=== PATIENT | female | born 1945 | race Caucasian/White ===

== ENCOUNTER → 2016-11-13 | Outpatient (CLI) | payer OTHER ==
[2016-06-22 10:57] VITALS: BP 139/67
--- NOTE | 2016-11-14 06:44 | RAD ---
HISTORY: Cough, fever Study: Chest two views Comparison: September 15, 2015 Findings: The heart is within normal limits in size. The aorta is calcified. The nelson are normal. No congestiv e heart failure is noted. The lungs are well inflated and free of acute alveolar infiltrates. No ple ural effusions are identified. The pulmonary arteries are prominent but unchanged from prior examina tion. IMPRESSION: Lungs hyperinflated but free of acute infiltrates Reported By:
== END ==
LOC: RAD 17:58
PROVIDERS: ATTEND Internal Medicine Critical Care Medicine
DX: J11.1 Influenza due to unidentified influenza virus with other respiratory manifestations (principal)
CPT/HCPCS: 71020

== ENCOUNTER 2017-04-03 15:59 | Observation (INO) | payer OTHER ==
[2017-04-03] MEDS ORDERED: XANAX PO PRN ×2 (16:54→18:10)
--- NOTE | 2017-04-03 17:00 | DR.H&P ---
H&P - History & Physical for Day of: H&P Date: 04/03/17 - Chief Complaint Chief Complaint: ABDOMINAL PAIN, N/V. CANNOT EAT - Allergies Allergies/Adverse Reactions: Allergies Allergy/AdvReac Type Severity Reaction Status Date / Time MS Amoxicillin [Amoxicillin] Allergy Severe RASH Verified 09/15/15 19:45 MS Ciprofloxacin [From Cipro] Allergy Severe RASH Verified 09/15/15 19:48 MS Doxycycline [Doxycycline] Allergy Severe RASH Verified 09/15/15 19:49 MS Pneumococcal Vaccine Allergy Severe RASH, Verified 09/15/15 19:53 [Pneumococcal Vaccine] SWELLING MS Clonidine [Clonidine] Allergy Intermediate DRY COUGH Verified 09/15/15 19:47 MS Fluconazole Allergy Intermediate RASH Verified 09/15/15 19:50 [From Diflucan] MS Codeine [Codeine] Allergy Unknown Verified 09/15/15 19:53 MS Ambrisentan Allergy Verified 09/15/15 19:51 [From Letairis] MS Lisinopril [Lisinopril] Allergy Verified 09/15/15 19:47 MS Red Dye [From Letairis] Allergy SOB, Verified 09/15/15 19:51 SWELLING, RASH SOLUMEDROL Allergy Unknown Uncoded 09/15/15 19:53 - History of Present Illness History of Present Illness: 72 WF DIRECT ADMIT FROM DR WOODY OFFICE WITH CO ABDOMINAL PAIN, N/V/D, FOOD INTOLERANCE, ABDOMINAL BLOATING. PT HAS HX GALLBLADDER EF 2.4% IN 2014, PT POST-PONED DUE TO AFIB AND PULMONARY HYPERTENSION REQUIRING MEDICAL CLEARANCE FOR SURGERY. PT UNDER THE CARE OF DR UNDERWOOD AT [facility]. PT HOLDING COUMADIN AT THIS TIME, REPORTS INR 2.4 THIS AM. PLAN TO OBTAIN GB US AND HIDA SCAN, DISCUSSED POSSIBLE TRANSFER TO [facility] FOR CHOLECYSTECTOMY - Past Medical History Past Medical History: Arthritis, Coronary Artery Disease, Hypertension Additional Medical History: PYLMONARY HTN - Past Surgical History Surgical History: Appendectomy, - Family History Family Medical History: Cancer, Hypertension - Social History Does patient currently use any type of tobacco product: No Have you used tobacco products in the last 12 months: No Type of Tobacco Use: None Does any household member use tobacco: No Alcohol Use: None Drug Use: None - Review of Systems Constitutional: Fever, Chills, Weakness Eyes: No Symptoms Reported ENT: No Symptoms Reported Respiratory: No Symptoms Reported Cardiovascular: No Symptoms Reported Gastrointestinal: Nausea, Vomiting, Abdominal Pain Genitourinary: No Symptoms Reported Musculoskeletal: Back Pain, Leg Pain Skin: No Symptoms Reported Neurological: No Symptoms Reported - Physical Exam Vital Signs: Blood Pressure [Right Arm] 170/110 Blood Pressure [Left Arm] 184/78 Blood Pressure 139/67 Oriented: Normal Eyes: Normal Ear: Normal Nose: Normal Throat: Normal Respiratory: RLL Diminished, LLL Diminished Cardiovascular: Irregular : Normal Auscultation: Bowel Sounds: Normal Palpation: Normal Tenderness: RUQ, Epigastric Skin: Decreased Turgur Musculoskeletal: Back:Thoracic, Back:Lumbar Affect: Anxious Speech Pattern: Clear, Appropriate - Assessment/Plan (1) Biliary dyskinesia Status: Acute Plan: admit, obtain admission labs including amylase and lipase, urinalysis, PT/ INR, a.m. gallbladder ultrasound and HIDA scan, resume home medications, hold Coumadin, EKG on admission and continuous telemetry. Frost diet (2) Hypertension Status: Acute (3) Pulmonary hypertension Status: Acute (4) Atrial fibrillation Status: Active (5) RUQ pain Status: Acute
[2017-04-03] MEDS ORDERED: ZOFRAN INJ 4 MG VIAL IVP PRN (18:10)
[2017-04-03 18:43] LABS: BASOPHILS # (AUTO) 0.1 X10^3/uL (0.0-0.1); BASOPHILS % (AUTO) 0.9 % (0.2-1.0); EOSINOPHILS # (AUTO) 0.1 x10^3/uL (0.0-0.2); EOSINOPHILS % (AUTO) 1.9 % (0.9-2.9); HEMATOCRIT 38.7 % (36.0-47.0); HEMOGLOBIN 13.2 g/dL (12.0-16.0); LYMPHOCYTES # (AUTO) 1.8 X10^3/uL (1.3-2.9); LYMPHOCYTES % (AUTO) 29.2 % (21.0-51.0); MEAN CORPUSCULAR HEMOGLOBIN 31.4 pg (27.0-34.0); MEAN CORPUSCULAR HGB CONC 34.1 g/dL (33.0-35.0); MEAN CORPUSCULAR VOLUME 92.1 fL (80.0-100.0); MEAN PLATELET VOLUME 7.3 fL (7.4-11.0); MONOCYTES # (AUTO) 0.3 x10^3/uL (0.3-0.8); MONOCYTES % (AUTO) 4.4 % (0.0-13.0); NEUTROPHILS % (AUTO) 63.6 % (42.0-75.0); PLATELET COUNT 193 X10^3/uL (150.0-450.0); WHITE BLOOD COUNT 6.2 X10^3/uL (3.6-10.0)
[2017-04-03 18:50] LABS: ALANINE AMINOTRANSFERASE 26 Units/L (12-78); ALBUMIN 3.6 g/dL (3.4-5.0); ALKALINE PHOSPHATASE 78 Units/L (46-116); ASPARTATE AMINO TRANSFERASE 22 Units/L (15-37); BLOOD UREA NITROGEN 17 mg/dL (7-18); CALCIUM 9.6 mg/dL (8.5-10.1); CARBON DIOXIDE 29.2 mmol/L (21-32); CHLORIDE 104 mmol/L (98-107); COR NA(FOR HYPERGLY) 141 mmol/L (136-145); CREATININE 1.04 mg/dL (0.55-1.02); LIPASE 120 Units/L (73-393); SODIUM 140 mmol/L (136-145); TOTAL PROTEIN 7.5 g/dL (6.4-8.2); eGFR BLACK RACES > 60 (>60); eGFR NON BLACK RACES 55 (>60)
[2017-04-03 22:32] LABS: BILIRUBIN,URINE NEGATIVE (NEGATIVE); BLOOD/HEMOGLOBIN,URINE 3+ (NEGATIVE); GLUCOSE, URINE NEGATIVE (NEGATIVE); KETONES,URINE NEGATIVE (NEGATIVE); LEUKOCYTE ESTERASE ,URINE NEGATIVE (NEGATIVE); NITRITES,URINE NEGATIVE (NEGATIVE); PH,URINE 6.5 (5.0 - 8.0); PROTEIN,URINE NEGATIVE (NEGATIVE); UROBILINOGEN,URINE NORMAL (NORMAL)
[2017-04-03 22:34] LABS: APPEARANCE,URINE CLEAR (CLEAR); COLOR,URINE PALE YELLOW (YELLOW)
[2017-04-03 22:40] LABS: BACTERIA,URINE NEGATIVE /HPF (NEGATIVE); SQUAMOUS EPITHELIAL CELL,UR FEW /HPF (NEGATIVE)
[2017-04-04 04:33] LABS: BASOPHILS % (AUTO) 0.9 % (0.2-1.0); EOSINOPHILS # (AUTO) 0.1 x10^3/uL (0.0-0.2); HEMATOCRIT 35.7 % (36.0-47.0); HEMOGLOBIN 12.1 g/dL (12.0-16.0); LYMPHOCYTES % (AUTO) 36.1 % (21.0-51.0); MEAN CORPUSCULAR HEMOGLOBIN 30.9 pg (27.0-34.0); MEAN CORPUSCULAR VOLUME 90.8 fL (80.0-100.0); MEAN PLATELET VOLUME 7.5 fL (7.4-11.0); MONOCYTES # (AUTO) 0.4 x10^3/uL (0.3-0.8); MONOCYTES % (AUTO) 7.1 % (0.0-13.0); NEUTROPHILS # (AUTO) 2.9 x10^3/uL (2.2-4.8); NEUTROPHILS % (AUTO) 53.9 % (42.0-75.0); PLATELET COUNT 177 X10^3/uL (150.0-450.0); RED BLOOD COUNT 3.93 X10^6/uL (3.5-5.4); RED CELL DISTRIBUTION WIDTH 12.8 % (11.6-16.5); WHITE BLOOD COUNT 5.5 X10^3/uL (3.6-10.0)
--- NOTE | 2017-04-04 08:23 | US ---
History: Right upper quadrant pain Study: Ultrasound of the right upper quadrant of the abdomen Comparison: March 09, 2015 Findings: The gallbladder is normal in size without wall thickening or stone. The common hepatic duct measures 4.5 mm diameter. There is no free fluid. The right kidney measures 9.26 x 4.67 by 4.56 cm without mass or hydronephrosis. The visualized liver is unremarkable without mass. The pancreas is unremarkable. Impression: Negative Reported By:
[2017-04-04] MEDS ORDERED: MIRALAX POWDER (1 DOSE 17GM) PO PRN (09:25)
[2017-04-04] MEDS ORDERED: PHENERGAN TAB 25 MG PO PRN (09:25)
[2017-04-04] MEDS ORDERED: CYCLOBENZAPRINE HCL 5 MG PO PRN (09:25)
[2017-04-04] MEDS ORDERED: HYDROMORPHONE HCL PO PRN (09:25)
[2017-04-04] MEDS ORDERED: [UNRECOGNIZED DRUG - OTHER] HHN SCH (09:30)
[2017-04-04] MEDS ORDERED: FLEXERIL TAB 10 MG PO PRN (10:13)
[2017-04-04] MEDS: ULTRAM PO PRN ×2 (10:38→19:10)
[2017-04-04] MEDS ORDERED: CELEBREX PO SCH (11:00)
[2017-04-04] MEDS: COREG TAB 25 MG PO SCH ×2 (11:05→20:32)
[2017-04-04] MEDS: LASIX PO SCH (11:06)
[2017-04-04] MEDS: COZAAR PO SCH ×2 (11:06→20:32)
[2017-04-04] MEDS: NORVASC TAB 5 MG PO SCH ×2 (11:06→13:32)
[2017-04-04] MEDS: LEVSIN/MAALOX/LIDOC VISC PO PRN (13:32)
--- NOTE | 2017-04-04 13:54 | PCM.PROG ---
Progress Note - Progress Note for Day of Date: 04/04/17 - Subjective Subjective: patient complains of Right upper abdominal pain, right side pain, nausea this a.m. The patient is a 72-year-old white female who was a direct admit one day ago with diagnosis of right upper quadrant pain and biliary dyskinesia. Patient had gallbladder ultrasound this morning and has a HIDA scan scheduled for a.m. Patient's last HIDA scan revealed an ejection fracture of 2.4 which was in the fall of 2014. Patient has a history of atrophia on Coumadin therapy as well as pulmonary hypertension. Pending diagnostic test results we will arrange for transfer to [facility] for cholecystectomy. Continue current medication regimen, bland diet, a.m. labs - Past Medical Family Social History Past Med/Fam/Surg Hx: No changes since H&P Allergies: Allergies ambrisentan [From Letairis] Allergy (Verified 04/03/17 19:41) amoxicillin Allergy (Verified 04/03/17 19:41) ciprofloxacin [From Cipro] Allergy (Verified 04/03/17 19:41) clonidine Allergy (Verified 04/03/17 19:41) codeine Allergy (Verified 04/03/17 19:41) doxycycline Allergy (Verified 04/03/17 19:41) fluconazole [From Diflucan] Allergy (Verified 04/03/17 19:41) lisinopril Allergy (Verified 04/03/17 19:41) pneumococcal vaccine Allergy (Verified 04/03/17 19:41) SOLUMEDROL Allergy (Unknown, Uncoded 09/15/15 19:53) - Review of Systems ROS: No change since H&P - Vital Signs and I&O's Vital Signs: Temperature 98.2 F Pulse Rate [Right Brachial] 60 Respiratory Rate 18 Blood Pressure [Right Arm] 136/64 Blood Pressure [Left Arm] 184/78 Blood Pressure 139/67 O2 Sat by Pulse Oximetry 94 Intake and Output: Intake & Output 04/02/17 04/03/17 04/04/17 04/05/17 11:59 11:59 11:59 11:59 Intake Total 320 Balance 320 - Physical Exam Oriented: Normal Eyes: Normal Ear: Normal Nose: Normal Throat: Normal Cardiovascular: Irregular : Normal Auscultation: Bowel Sounds: Normal Tenderness: RUQ, Epigastric Skin: Decreased Turgur Musculoskeletal: Back:Thoracic, Back:Lumbar Affect: Anxious Speech Pattern: Clear, Appropriate - Laboratory and Diagnostics Result Diagrams: 04/04/17 03:50 04/03/17 18:25 Labs: Laboratory WBC 5.5 X10^3/uL (3.6-10.0) 04/04/17 03:50 RBC 3.93 X10^6/uL (3.5-5.4) 04/04/17 03:50 Hgb 12.1 g/dL (12.0-16.0) 04/04/17 03:50 Hct 35.7 % (36.0-47.0) L 04/04/17 03:50 MCV 90.8 fL (80.0-100.0) 04/04/17 03:50 MCH 30.9 pg (27.0-34.0) 04/04/17 03:50 MCHC 34.0 g/dL (33.0-35.0) 04/04/17 03:50 RDW 12.8 % (11.6-16.5) 04/04/17 03:50 Plt Count 177 X10^3/uL (150.0-450.0) 04/04/17 03:50 MPV 7.5 fL (7.4-11.0) 04/04/17 03:50 Neut % 53.9 % (42.0-75.0) 04/04/17 03:50 Lymph % 36.1 % (21.0-51.0) 04/04/17 03:50 Ogle % 7.1 % (0.0-13.0) 04/04/17 03:50 Eos % 2.0 % (0.9-2.9) 04/04/17 03:50 Baso % 0.9 % (0.2-1.0) 04/04/17 03:50 Neut # 2.9 x10^3/uL (2.2-4.8) 04/04/17 03:50 Lymph # 2.0 X10^3/uL (1.3-2.9) 04/04/17 03:50 Ogle # 0.4 x10^3/uL (0.3-0.8) 04/04/17 03:50 Eos # 0.1 x10^3/uL (0.0-0.2) 04/04/17 03:50 Baso # 0.0 X10^3/uL (0.0-0.1) 04/04/17 03:50 Absolute Nucleated RBC 0.0 /100WBC 04/04/17 03:50 INR Target Range - 04/03/17 18:25 INR 2.01 (0.8-1.3) H 04/03/17 18:25 Sodium 140 mmol/L (136-145) 04/03/17 18:25 Corrected Sodium 141 mmol/L (136-145) 04/03/17 18:25 Potassium 3.6 mmol/L (3.5-5.1) 04/03/17 18:25 Chloride 104 mmol/L (98-107) 04/03/17 18:25 Carbon Dioxide 29.2 mmol/L (21-32) 04/03/17 18:25 BUN 17 mg/dL (7-18) 04/03/17 18:25 Creatinine 1.04 mg/dL (0.55-1.02) H 04/03/17 18:25 Est GFR (MDRD) Af Amer > 60 (>60) 04/03/17 18:25 Est GFR (MDRD) Non-Af 55 (>60) L 04/03/17 18:25 Glucose 134 mg/dL (65-99) H 04/03/17 18:25 Calcium 9.6 mg/dL (8.5-10.1) 04/03/17 18:25 Corrected Calcium TNP 04/03/17 18:25 Total Bilirubin 0.70 mg/dL (0.2-1.0) 04/03/17 18:25 AST 22 Units/L (15-37) 04/03/17 18:25 ALT 26 Units/L (12-78) 04/03/17 18:25 Alkaline Phosphatase 78 Units/L (46-116) 04/03/17 18:25 Total Protein 7.5 g/dL (6.4-8.2) 04/03/17 18:25 Albumin 3.6 g/dL (3.4-5.0) 04/03/17 18:25 Globulin 3.9 g/dL (2.5-4.5) 04/03/17 18:25 Albumin/Globulin Ratio 0.9 Ratio (1.1-2.1) L 04/03/17 18:25 Amylase 43 Units/L (25-115) 04/04/17 03:50 Lipase 120 Units/L (73-393) 04/03/17 18:25 Specimen Type Clean catch urine 04/03/17 18:10 Urine Color Pale yellow (YELLOW) 04/03/17 18:10 Urine Appearance Clear (CLEAR) 04/03/17 18:10 Urine pH 6.5 (5.0 - 8.0) 04/03/17 18:10 Ur Specific Notrees 1.010 (1.000-1.030) 04/03/17 18:10 Urine Protein Negative (NEGATIVE) 04/03/17 18:10 Urine Glucose (UA) Negative (NEGATIVE) 04/03/17 18:10 Urine Ketones Negative (NEGATIVE) 04/03/17 18:10 Urine Occult Blood 3+ (NEGATIVE) 04/03/17 18:10 Urine Nitrite Negative (NEGATIVE) 04/03/17 18:10 Urine Bilirubin Negative (NEGATIVE) 04/03/17 18:10 Urine Urobilinogen Normal (NORMAL) 04/03/17 18:10 Ur Leukocyte Esterase Negative (NEGATIVE) 04/03/17 18:10 Urine RBC 1 - 4 /HPF (NEGATIVE) 04/03/17 18:10 Urine WBC Rare /HPF (NEGATIVE) 04/03/17 18:10 Ur Squamous Epith Cells Few /HPF (NEGATIVE) 04/03/17 18:10 Urine Bacteria Negative /HPF (NEGATIVE) 04/03/17 18:10 Ur Culture Indicated? No/not indicated 04/03/17 18:10 - Plan (1) Biliary dyskinesia Status: Acute Plan: gallbladder ultrasound obtained this morning, HIDA scan every morning. [place] diet, pain and nausea control, continue current medication regimen. Repeat a.m. labs (2) Hypertension Status: Acute (3) Pulmonary hypertension Status: Acute (4) Atrial fibrillation Status: Active (5) RUQ pain Status: Acute
[2017-04-04] MEDS: PriLOSEC PO SCH (14:49)
[2017-04-04] MEDS ORDERED: PATIENT'S HOME MEDICATION (Omeprazole [Prilosec 40 Mg] 40 MG) PO SCH (15:00)
[2017-04-04] MEDS ORDERED: PATIENT'S HOME MEDICATION (Losartan Potassium [Cozaar] 50 MG) PO SCH (21:00)
[2017-04-04] MEDS ORDERED: COUMADIN TAB 7.5 MG PO SCH (21:00)
[2017-04-04] MEDS ORDERED: XANAX PO SCH (21:00)
[2017-04-05 04:58] LABS: ALANINE AMINOTRANSFERASE 25 Units/L (12-78); ALBUMIN 2.9 g/dL (3.4-5.0); ALKALINE PHOSPHATASE 63 Units/L (46-116); ASPARTATE AMINO TRANSFERASE 23 Units/L (15-37); BLOOD UREA NITROGEN 15 mg/dL (7-18); CALCIUM 8.7 mg/dL (8.5-10.1); CARBON DIOXIDE 30.4 mmol/L (21-32); CHLORIDE 106 mmol/L (98-107); COR CA(FOR HYPOALB) 9.6 mg/dL (8.5-10.1); COR NA(FOR HYPERGLY) 142 mmol/L (136-145); CREATININE 0.91 mg/dL (0.55-1.02); SODIUM 142 mmol/L (136-145); TOTAL PROTEIN 6.2 g/dL (6.4-8.2); eGFR BLACK RACES > 60 (>60); eGFR NON BLACK RACES > 60 (>60)
[2017-04-05 05:03] LABS: BASOPHILS % (AUTO) 0.9 % (0.2-1.0); EOSINOPHILS # (AUTO) 0.1 x10^3/uL (0.0-0.2); EOSINOPHILS % (AUTO) 2.5 % (0.9-2.9); HEMATOCRIT 35.3 % (36.0-47.0); HEMOGLOBIN 12.1 g/dL (12.0-16.0); LYMPHOCYTES # (AUTO) 1.8 X10^3/uL (1.3-2.9); LYMPHOCYTES % (AUTO) 36.4 % (21.0-51.0); MEAN CORPUSCULAR HEMOGLOBIN 31.3 pg (27.0-34.0); MEAN CORPUSCULAR HGB CONC 34.3 g/dL (33.0-35.0); MEAN CORPUSCULAR VOLUME 91.4 fL (80.0-100.0); MEAN PLATELET VOLUME 7.6 fL (7.4-11.0); MONOCYTES # (AUTO) 0.4 x10^3/uL (0.3-0.8); MONOCYTES % (AUTO) 7.9 % (0.0-13.0); NEUTROPHILS # (AUTO) 2.6 x10^3/uL (2.2-4.8); NEUTROPHILS % (AUTO) 52.3 % (42.0-75.0); PLATELET COUNT 178 X10^3/uL (150.0-450.0); RED BLOOD COUNT 3.86 X10^6/uL (3.5-5.4); RED CELL DISTRIBUTION WIDTH 12.6 % (11.6-16.5); WHITE BLOOD COUNT 5.1 X10^3/uL (3.6-10.0)
[2017-04-05] MEDS: COZAAR PO SCH (08:55)
[2017-04-05] MEDS: COREG TAB 25 MG PO SCH (08:55)
[2017-04-05] MEDS: LASIX PO SCH (08:56)
[2017-04-05] MEDS ORDERED: FUROSEMIDE 10 MG PO SCH (09:00)
[2017-04-05] MEDS ORDERED: CELECOXIB 200 MG PO SCH (09:00)
[2017-04-05] MEDS ORDERED: CHLORASEPTIC SPRAY MT PRN (09:03)
[2017-04-05] MEDS ORDERED: ROCEPHIN VIAL 1 GM 1 GM in NS 50 ML IV + SPIKE MINIBAG* 50 ML IV SCH (09:15)
[2017-04-05] MEDS ORDERED: NS 250 ML IV 250 ML IV ONE (11:43)
--- NOTE | 2017-04-05 12:06 | NM ---
HISTORY: Right upper quadrant pain, nausea and vomiting Study: Nuclear medicine HIDA scan with ejection fraction Comparison: Gallbladder ultrasound 04/04/2017 Technique: Multiple scintigraphic images of the abdomen were obtained the intravenous administration of 5.4 mCi of technetium labeled Choletec. Following distention of the gallbladder with radiotracer, the patient drank 8 oz of Ensure. An estim ated gallbladder ejection fraction was calculated based on the physiologic response of this congestio n. Findings: Homogeneous uptake of radiotracer is seen throughout the liver. This intrabiliary ductal system is o bserved normally. The common hepatic and common bile duct grossly appear unremarkable with normal bi liary-bowel transit. The gallbladder is observed to fill normally. After the IV administration of Kinevac, a gallbladder ejection fraction of 0% (normal > 35%) is obser joaquin. IMPRESSION: 1. Normal hepatobiliary imaging scan. 2. Gallbladder EF of 0%, in keeping with marked dysmotility. Reported By:
[2017-04-05] MEDS: PriLOSEC PO SCH (14:07)
[2017-04-05] MEDS: LEVSIN/MAALOX/LIDOC VISC PO PRN (14:07)
[2017-04-05] MEDS: NORVASC TAB 5 MG PO SCH (14:07)
[2017-04-05 16:42] VITALS: BP 143/63
[2017-04-05] MEDS ORDERED: MILK OF MAGNESIA PO SCH (22:00)
[2017-04-05] MEDS ORDERED: COLACE CAP 100 MG PO SCH (22:00)
== END 2017-04-05 18:45 | disposition short-term general hospital (02) ==
LOC: MED/SURG 15:59
PROVIDERS: ADMIT Internal Medicine; ATTEND Internal Medicine
DX: R10.84 Generalized abdominal pain (principal); R11.2 Nausea with vomiting, unspecified; R79.1 Abnormal coagulation profile; E11.65 Type 2 diabetes mellitus with hyperglycemia; R94.4 Abnormal results of kidney function studies; I10 Essential (primary) hypertension; I48.91 Unspecified atrial fibrillation; Z79.01 Long term (current) use of anticoagulants; I25.10 Atherosclerotic heart disease of native coronary artery without angina pectoris; K82.8 Other specified diseases of gallbladder; R10.11 Right upper quadrant pain; R94.31 Abnormal electrocardiogram [ECG] [EKG]; I27.20 Pulmonary hypertension, unspecified
CPT/HCPCS: 36415; 76705; 78227; 80053; 81001; 82150; 83690; 85025; 85610; 87040; 93005; 93010; A4222; A9537; G0378; J0696; J2405